=== PATIENT | male | born 1985 | race Caucasian/White ===

== ENCOUNTER 2017-04-11 19:08 | Emergency (ER) | payer OTHER ==
[2017-04-11 19:19] VITALS: BP 134/85; PULSE 87; RESP 20; TEMP 99; O2SAT 97
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
== END 2017-04-11 20:22 | disposition home or self-care (01) ==
LOC: EDSEX 19:08
DX: S00.83XA Contusion of other part of head, initial encounter (principal); W50.0XXA Accidental hit or strike by another person, initial encounter; Y92.89 Other specified places as the place of occurrence of the external cause; Y99.0 Civilian activity done for income or pay; Y93.89 Activity, other specified

== ENCOUNTER → 2017-06-25 | Outpatient (CLI) | payer OTHER | LOC: FIMAGING 09:28 | PROVIDERS: ATTEND Family Medicine | DX: K40.90 Unilateral inguinal hernia, without obstruction or gangrene, not specified as recurrent (principal) ==

== ENCOUNTER 2017-09-04 05:43 | Day surgery (SDC) | payer OTHER ==
[2017-09-04] MEDS ORDERED: LR 1,000 ML IV ONE (06:04)
--- NOTE | 2017-09-04 06:06 | PDANEPAE ---
ANE History of Present Illness 32 yo healthy male with RIH for laparoscopic repair. ANE Past Medical History - Cardiovascular History Hx Hypertension: No Hx Arrhythmias: No Hx Chest Pain: No Hx Coronary Artery / Peripheral Vascular Disease: No Hx CHF / Valvular Disease: No Hx Palpitations: No Cardiovascular History Comment: elevated TG/LDL/VLDL, low HDL from 04/25 labs - Pulmonary History Hx COPD: No Hx Asthma/Reactive Airway Disease: No Hx Recent Upper Respiratory Infection: No Hx Oxygen in Use at Home: No Hx Sleep Apnea: No Sleep Apnea Screening Result - Last Documented: Negative - Neurologic History Hx Cerebrovascular Accident: No Hx Seizures: No Hx Dementia: No - Endocrine History Hx Diabetes: No Hypothyroid: No Obesity: no - Renal History Hx Renal Disorders: No - Liver History Hx Hepatic Disorders: No - Neurological & Psychiatric Hx Hx Neurological and Psychiatric Disorders: No - Cancer History Hx Cancer: No - Congenital Disorder History Hx Congenital Disorders: Yes Congenital History Comment: HERNIAS - GI History Hx Gastrointestinal Disorders: No - Other Health History Other Health History: NONE - Chronic Pain History Chronic Pain: No - Surgical History Prior Surgeries: NONE ANE Review of Systems Review of Systems: - Exercise capacity METS (RN): 5 METS - Systems Constitutional: Reports: no symptoms Cardiac: Reports: no symptoms Respiratory: Reports: no symptoms Gastrointestinal: Reports: no symptoms ANE Patient History - Allergies Allergies/Adverse Reactions: No Known Allergies Allergy (Verified 08/26/17 15:20) - Home Medications Home Medications: NK [No Known Home Meds] 04/11/17 [Last Taken Unknown] - NPO status NPO Status: no food or drink >8 hours - Anes Hx Hx Anesthesia Complications (with details): Pt denies any experience with anesthesia in the past. - Smoking Hx Smoking Status: Never smoked - Alcohol Use Alcohol Use: None - Family Anes Hx Family Anes Hx: neg - N/A Family Hx Anesthesia Complications: NONE ANE Labs/Vital Signs - Labs - BMP Glucose: 94 Creatinine: 0.8 - Vital Signs Blood Pressure: 154/99 (white coat syndome per pt, typically 120s/80s at home) Heart Rate: 101 (usually in the 50s - pt is nervous) Respiratory Rate: 16 O2 Sat (%): 97 Height: 177.8 cm Weight: 88.451 kg ANE Physical Exam - Airway Neck exam: FROM Mallampati Score: Class 1 Mouth exam: wang - Pulmonary Pulmonary: clear to auscultation - Cardiovascular Cardiovascular: regular rate and rhythym - ASA Status ASA Status: II ANE Anesthesia Plan Anesthesia Plan: general endotracheal anesthesia
[2017-09-04] MEDS ORDERED: BUPIVACAINE/EPI 0.5% 30 ML SDV ONE (06:36)
--- NOTE | 2017-09-04 07:02 | PDHPUP ---
History & Physical Update H&P update statement: This history and physical update is based on an assessment of the patient which was completed after admission or registration (within 24 hours), but prior to the surgery/procedure. H&P update: H&P reviewed & patient examined, no change in patient's condition since H&P completed
[2017-09-04] MEDS ORDERED: DEXAMETHASONE 4 MG/ML VIAL ONE (07:12)
[2017-09-04] MEDS ORDERED: LIDOCAINE 2% 5 ML SDV ONE (07:12)
[2017-09-04] MEDS ORDERED: PROPOFOL 200 MG/20 ML VIAL ONE ×2 (07:12)
[2017-09-04] MEDS ORDERED: fentaNYL 100 MCG/2 ML INJ ONE (07:12)
[2017-09-04] MEDS ORDERED: ROCURONIUM 50 MG/5 ML VIAL ONE (07:12)
--- NOTE | 2017-09-04 07:15 | POSTOPPROG ---
Post Op Note Date of Operation: 09/04/17 Surgeon: Jessica Blackman Millwright Apprentice: Jessica Blackman Anesthesiologist: Luz Wilson Anesthesia: GET(General Endotracheal) Pre-op Diagnosis: RIH Post-op Diagnosis: BIH Procedure: lap BIH Findings: large cord lipomas bilaterally. Left direct space defect. Inf/Abcess present in the surg proc area at time of surgery?: No EBL: Minimal Complications: no immediate Specimen(s): none
[2017-09-04] MEDS ORDERED: ONDANSETRON 4 MG/2 ML VIAL ONE (07:36)
[2017-09-04] MEDS ORDERED: KETOROLAC 30 MG/1 ML SDV ONE (07:36)
[2017-09-04] MEDS ORDERED: HYDROCODONE/APAP 5/325 TAB PO PRN (07:56)
[2017-09-04] MEDS ORDERED: PROMETHAZINE HCL 25 MG/ML INJ IVP PRN (07:56)
[2017-09-04] MEDS ORDERED: ACETAMINOPHEN 500 MG TAB PO PRN (07:56)
[2017-09-04] MEDS ORDERED: LR 500 ML IV PRN (07:56)
[2017-09-04] MEDS ORDERED: fentaNYL 100 MCG/2 ML INJ IVP PRN (07:56)
[2017-09-04] MEDS ORDERED: ALBUTEROL 3 ML DEYVIAL IH PRN (07:56)
[2017-09-04] MEDS ORDERED: NALOXONE HCL 0.4 MG/ML INJ IVP PRN (07:56)
--- NOTE | 2017-09-04 08:20 | POSTANESTH ---
Post Anesthetic Evaluation Cardiovascular Status: Normal, Stable (Still elevated, but closer to normal range. Initial reading 131/102, but repeat was 136/89), Similar to Pre-Op Cond Respiratory Status: Normal, Stable Level of Consciousness/Mental Status: Can Participate in Eval, Mildly Sleepy, Arousable Pain Control: Adequate, Prn Tx Ordered Nausea/Vomiting Control: Adequate, Prn Tx Ordered Complications Possibly Related to Anesthesia: None Noted
--- NOTE | 2017-09-04 08:46 | GOP ---
[f rep st] OPERATIVE REPORT DATE OF OPERATION: 09/04/2017 SURGEON: Cody Zhou MD PAD MACHINE OPERATOR: Jessica Blackman PA-C. ANESTHESIA: General. ANESTHESIOLOGIST: Luz Tobar MD. PREOPERATIVE DIAGNOSIS: Right inguinal hernia. POSTOPERATIVE DIAGNOSIS: Bilateral inguinal hernia. PROCEDURE PERFORMED: Laparoscopic bilateral hernia repair. FINDINGS: Large bilateral cord lipomas, left direct space defect. INDICATIONS: 32-year-old male with a symptomatic right inguinal hernia. He is undergoing surgical repair at this time. Risks and benefits were explained of bleeding, infection, open conversion, bladder injury as well as recurrence. All questions were answered. He desires to proceed. A neurosurgical nurse is standard, necessary and customary for the safe performance of this procedure. DESCRIPTION OF PROCEDURE: General anesthesia was induced. The abdomen was pre injected with 0.5% Marcaine with epinephrine. A curvilinear infraumbilical incision was created. The right anterior rectus sheath fascia was opened. The preperitoneal space was developed with a balloon dissector and trocar until bilateral pubic arteries were identified. The structure balloon was inserted followed by two 5 mm lower midline ports. Bilateral spermatic cords were circumferentially encompassed. There were large cord lipomas bilaterally. The lipomas were skeletonized off the cord structures and reduced back toward the abdominal space. There was no evidence of indirect sacs. There was a small direct space defect on the left, not clinically appreciated. A large 3D Marlex mesh patch was inserted and secured to Alex's ligament and the anterior abdominal wall. Satisfactory hemostasis was assured. Complete coverage of the entire myopectineal surface was obtained. Trocars were removed under direct visualization. The anterior rectus sheath fascia was closed with a running Vicryl suture. The wounds were closed with Monocryl suture followed by Dermabond. The patient was taken to recovery uneventfully. Copy requested to: aDng Ho MD /[id number]/MODL MTDD
[2017-09-04 11:02] VITALS: BP 124/79; RESP 14; O2SAT 95
[2017-09-04 11:03] VITALS: TEMP 97.9
[2017-09-04 11:05] VITALS: PULSE 80
== END 2017-09-04 10:03 | disposition home or self-care (01) ==
LOC: FSGY 05:43
PROVIDERS: ATTEND Surgery
PROC: 0WUF4JZ Supplement Abdominal Wall with Synthetic Substitute, Percutaneous Endoscopic Approach (ICD-10-PCS; principal; 2017-09-04 07:15)
DX: K40.20 Bilateral inguinal hernia, without obstruction or gangrene, not specified as recurrent (principal); D17.6 Benign lipomatous neoplasm of spermatic cord
CPT/HCPCS: C1781; J1100; J1885; J2405; J2704; J3010